=== PATIENT | male | born 1960 | race Caucasian/White ===

== ENCOUNTER 2018-12-15 06:08 | Day surgery (SDC) | payer MEDICARE, MEDICAID ==
[~2018-12-15] VITALS: Ht 170.2 cm; Wt 70.3 kg
[2018-12-15] VITALS (10 sets, daily range): BP systolic 98–114; BP diastolic 56–73
[2018-12-15] MEDS ORDERED: GENVOYA TABLET1 EACH PO (06:43)
--- NOTE | 2018-12-15 06:47 | Pre-Procedure Note/Attestation ---
Pre-Procedure Note/Attestation Complete Prior to Procedure Planned Procedure: not applicable Procedure Narrative: laparoscopic possible open ventral hernia repair with mesh Indications for Procedure Pre-Operative Diagnosis: incarcerated ventral hernia Attestation I attest that I discussed the nature of the procedure; its benefits; risks and complications; and alternatives (and the risks and benefits of such alternatives ), prior to the procedure, with the patient (or the patient's legal promotions representative). I attest that, if there was a reasonable possibility of needing a blood transfusion, the patient (or the patient's legal promotions representative) was given the [facility] standardized written summary, pursuant to the [place] Blood Safety Act ([place] Health and Safety Code # 1645, as amended). I attest that I re-evaluated the patient just prior to the surgery and that there has been no change in the patient's H&P, except as documented below: Kelby Rosenbaum Dec 15, 2018 06:47
[2018-12-15] MEDS ORDERED: fentaNYL 100 mcg/2 mL ONE (06:59)
[2018-12-15] MEDS ORDERED: Midazolam 2mg/2ml Inj ONE (06:59)
[2018-12-15] MEDS ORDERED: Rocuronium Bromide 50mg/5ml Inj IV ONE (07:09)
[2018-12-15] MEDS ORDERED: Succinylcholine 20mg/ml 10ml vial ONE (07:09)
[2018-12-15 07:23] LABS: ANION GAP 4 mmol/L (5-15); BLOOD UREA NITROGEN 18 mg/dL (7-18); CALCIUM 8.4 MG/DL (8.5-10.1); CARBON DIOXIDE 30 MMOL/L (21-32); CHLORIDE 105 MMOL/L (98-107); CREATININE 1.4 MG/DL (0.55-1.30); POTASSIUM 3.8 MMOL/L (3.5-5.1); SODIUM 139 MMOL/L (136-145)
[2018-12-15 07:26] LABS: BASOPHILS % (AUTO) 0.8 % (0.0-2.0); HEMATOCRIT 47.1 % (42.0-52.0); HEMOGLOBIN 16.6 G/DL (14.2-18.0); LYMPHOCYTES % (AUTO) 36.8 % (20.0-45.0); MEAN CORPUSCULAR VOLUME 100 FL (80-99); MONOCYTES % (AUTO) 17.1 % (1.0-10.0); NEUTROPHILS % (AUTO) 44.4 % (45.0-75.0); PLATELET COUNT 325 K/UL (150-450); RED CELL DISTRIBUTION WIDTH 11.9 % (11.6-14.8)
[2018-12-15] MEDS ORDERED: Bacitracin 50000 Units Vial ONE (07:27)
[2018-12-15] MEDS ORDERED: NeoSporin Gu Irrig 1ml Amp IRRIG ONE (07:27)
[2018-12-15] MEDS ORDERED: Bupivacaine w/Epi 0.5% 30ml Vial INJ ONE (07:27)
[2018-12-15] MEDS ORDERED: Morphine Sulfate 10mg/ml Inj ONE (08:16)
[2018-12-15] MEDS ORDERED: Ketorolac 30mg Inj ONE (08:17)
[2018-12-15] MEDS ORDERED: Sodium Chloride 10ml vial INJ ONE (08:17)
[2018-12-15] MEDS ORDERED: Glycopyrrolate 0.2mg/ml 1ml Vial ONE (08:19)
[2018-12-15] MEDS ORDERED: LR 1000ml 1,000 ML IVLG SCH (08:31)
--- NOTE | 2018-12-15 08:31 | Anethesia Preoperative Eval ---
Anesthesia Pre-op PMH/ROS General Date of Evaluation: Dec 15, 2018 Time of Evaluation: 07:10 Anesthesiologist: Bryce ASA Score: ASA 2 Mallampati Score Class I : Soft palate, uvula, fauces, pillars visible Class II: Soft palate, uvula, fauces visible Class III: Soft palate, base of uvula visible Class IV: Only hard plate visible Mallampati Classification: Class II Surgeon: Aman Diagnosis: Ventral hernia Surgical Procedure: Laparoscopic ventral hernia repair Anesthesia History: none Family History: no anesthesia problems Allergies: Coded Allergies: AMOXICILLIN (Verified Allergy, Unknown, 12/15/18) SULFAMETHOXAZOLE (Verified Allergy, Unknown, 12/15/18) TRIMETHOPRIM (Verified Allergy, Unknown, 12/15/18) Medications: see eMAR Patient NPO?: Yes Past Medical History Cardiovascular: Denies: HTN, CAD, NE, valve dz, arrhythmia, other Pulmonary: Denies: asthma, COPD, ADRIANA, other Gastrointestinal/Genitourinary: Reports: GERD - mild; Denies: CRI, ESRD, other Neurologic/Psychiatric: Reports: depression/anxiety; Denies: dementia, CVA, TIA, other Endocrine: Denies: DM, hypothyroidism, steroids, other HEENT: Denies: cataract (L), cataract (R), glaucoma, VENETIE (L), VENETIE (R), other Hematology/Immune: Reports: other - 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 Exam Physician Exam Last Vital Signs Date Time Temp Pulse Resp B/P (MAP) Pulse Ox O2 Delivery O2 Flow Rate FiO2 12/15/18 06:53 Room Air 12/15/18 06:31 97.8 63 18 110/73 96 Constitutional: NAD Neurologic: CN 2-12 intact Cardiovascular: RRR, no M/R/G Respiratory: CTA Gastrointestinal: S/NT/ND Airway Exam Mallampati Score: Class II MO: full Neck: flexible ROM: full Teeth: intact Dentures: no upper, no lower Anesthesia Pre-op A/P Labs Hematology Test 12/15/18 07:00 White Blood Count 10.0 K/UL (4.8-10.8) Red Blood Count 4.70 M/UL (4.70-6.10) Hemoglobin 16.6 G/DL (14.2-18.0) Hematocrit 47.1 % (42.0-52.0) Mean Corpuscular Volume 100 FL (80-99) H Mean Corpuscular Hemoglobin 35.3 PG (27.0-31.0) H Mean Corpuscular Hemoglobin Concent 35.2 G/DL (32.0-36.0) Red Cell Distribution Width 11.9 % (11.6-14.8) Platelet Count 325 K/UL (150-450) Mean Platelet Volume 5.1 FL (6.5-10.1) L Neutrophils (%) (Auto) 44.4 % (45.0-75.0) L Lymphocytes (%) (Auto) 36.8 % (20.0-45.0) Monocytes (%) (Auto) 17.1 % (1.0-10.0) H Eosinophils (%) (Auto) 1.0 % (0.0-3.0) Basophils (%) (Auto) 0.8 % (0.0-2.0) Coagulation Test 12/15/18 07:00 Prothrombin Time 11.1 SEC (9.30-11.50) Prothromb Time International Ratio 1.0 (0.9-1.1) Activated Partial Thromboplast Time 30 SEC (23-33) Chemistry Test 12/15/18 07:00 Sodium Level 139 MMOL/L (136-145) Potassium Level 3.8 MMOL/L (3.5-5.1) Chloride Level 105 MMOL/L (98-107) Carbon Dioxide Level 30 MMOL/L (21-32) Anion Gap 4 mmol/L (5-15) L Blood Urea Nitrogen 18 mg/dL (7-18) Creatinine 1.4 MG/DL (0.55-1.30) H Estimat Glomerular Filtration Rate 52.4 mL/min (>60) Glucose Level 92 MG/DL (74-106) Calcium Level 8.4 MG/DL (8.5-10.1) L Studies Pre-op Studies: EKG - NSR Risk Assessment & Plan Assessment: ASA 2 Plan: GA with ETT Status Change Before Surgery: No Pre-Antibiotics Drug: Ancef 2gr Given Within 1 Hr of Incision: Yes Time Given: 08:12 Stevie Wu MD Dec 15, 2018 08:31
[2018-12-15] MEDS ORDERED: DiphenhydrAMINE 50mg/ml Inj IVP PRN (08:45)
[2018-12-15] MEDS ORDERED: Meperidine 50mg/ml Inj(FOR RIGORS ONLY) IV PRN (08:45)
--- NOTE | 2018-12-15 09:19 | Brief Operative Note ---
Immediate Post Operative Note Operative Note Pre-op Diagnosis: incarcerated ventral hernia Procedure: 1. laparoscopic lysis of adhesions 2. open incarcerated ventral hernia repair 3. implantation of mesh Post-op Diagnosis: 1. abdominal wall adhesions 2. ventral incarcerated hernia Surgeon: Ilsa Anesthesiologist: Bryce Anesthesia: general, local Specimen: yes Complications: none Condition: stable Fluids: see records Estimated Blood Loss: minimal Drains: none Implant(s) used?: Yes Kelby Rosenbaum Dec 15, 2018 09:19
--- NOTE | 2018-12-15 09:24 | Immediate Post-Op Evaluation ---
Immediate Post-Op Evalulation Immediate Post-Op Evalulation Procedure: Laparoscopic ventral hernia repair Date of Evaluation: Dec 15, 2018 Time of Evaluation: 09:23 IV Fluids: 1000 Blood Products: none Estimated Blood Loss: min Urinary Output: none Blood Pressure Systolic: 109 Blood Pressure Diastolic: 71 Pulse Rate: 72 Respiratory Rate: 20 O2 Sat by Pulse Oximetry: 99 Temperature (Fahrenheit): 97.8 Pain Score (1-10): 1 Nausea: No Vomiting: No Complications none Patient Status: reacts, patent, extubated, none Hydration Status: adequate Stevie Wu MD Dec 15, 2018 09:24
--- NOTE | 2018-12-15 10:29 | 48 Hour Post Anesthesia Eval ---
Post Anesthesia Evaluation Procedure: Laparoscopic ventral hernia repair Date of Evaluation: Dec 15, 2018 Time of Evaluation: 10:28 Blood Pressure Systolic: 124 0: 76 Pulse Rate: 68 Respiratory Rate: 20 Temperature (Fahrenheit): 97.6 O2 Sat by Pulse Oximetry: 98 Airway: patent Nausea: No Vomiting: No Pain Intensity: 1 Hydration Status: adequate Cardiopulmonary Status: stable Mental Status/LOC: patient returned to baseline Follow-up Care/Observations: n/a Post-Anesthesia Complications: none Follow-up care needed: ready to discharge Stevie Wu MD Dec 15, 2018 10:29
--- NOTE | 2018-12-15 15:45 | Operative Note - Dictated ---
DATE OF OPERATION: 12/15/2018 PREOPERATIVE DIAGNOSIS: Incarcerated ventral hernia. POSTOPERATIVE DIAGNOSES: 1. Intra-abdominal abdominal wall adhesions. 2. Incarcerated ventral hernia. OPERATION PERFORMED: 1. Laparoscopic lysis of adhesions. 2. Open repair of incarcerated ventral hernia. 3. Implantation of mesh. ATTENDING SURGEON: Kelby Rosenbaum M.D. BAG REPAIRER: None. ANESTHESIOLOGIST: Stevie Wu M.D. ANESTHESIA: General LOSS CONTROL ENGINEER plus local. ESTIMATED BLOOD LOSS: Minimal. IV FLUIDS: Please see anesthesia records. COMPLICATIONS: None. DRAINS: None. COUNTS: Sponge and needle count correct x2. WOUND CLASSIFICATION: Class 1. SPECIMENS: Hernia and sac contents sent to pathology for review. IMPLANTS: Bard Ventralex hernia patch, self-expanding, polypropylene, and PTFE patch with strap and SorbaFlex Memory Technology for soft tissue reconstruction, small table mountain with strap 4.3 cm diameter, lot number [id number], reference [id number], expiration 07/19/2019. INDICATIONS FOR PROCEDURE: This 58-year-old male presented to his primary care physician for evaluation of an abnormal abdominal mass with discomfort. The patient was identified to have an incarcerated ventral hernia and was referred to myself for evaluation, was seen in the office, and identified to have a likely fat containing ventral hernia in the right epigastric subxiphoid region. Hernia could not be reduced and was easily palpable. Surgery was indicated and recommended. Risks, benefits, and alternatives were discussed with the patient in detail including the implantation of mesh. The patient expressed understanding and consented to surgery. We discussed laparoscopic versus open surgery. Given the patient's prior surgeries, a laparoscope was inserted and intra-abdominal area evaluated and potential for laparoscopic versus open repair with implantation of mesh. The patient was scheduled for 12/15/2018. Preoperative workup and medical clearance was obtained from patient's primary care physician. OPERATIVE NOTE: The patient was taken to the operating room and placed on the operating table in supine position. Bilateral arms tucked. All bony prominences well padded. SCDs were placed. Preoperative time-out was taken identifying the patient, procedure, operative staff, and surgical staff. General anesthesia induced and the patient was intubated. The abdomen was clipped, prepped, draped in standard surgical fashion. Local anesthetic was infiltrated in the skin incisions and port sites throughout the procedure. An infraumbilical incision was made using a fresh #11 scalpel and carried down to the fascia, which was elevated and incised. A small fascial incision was made and a 5 mm laparoscopic trocar was inserted without complication. The abdomen was insufflated to 12 to 15 mmHg. Laparoscope was inserted. The abdomen was inspected. No injury from initial trocar placement identified. In inspecting the abdomen, there were no abnormalities in the pubis or right or left lower quadrant. In the right upper quadrant, liver was otherwise healthy. In the subxiphoid right epigastric region, there was an incarcerated ventral hernia at the most distal falciform ligament/round ligament. This was a incarcerated hernia, which was easily identifiable laparoscopically. The hernia sac and contents were mainly within the round ligament and could be identified extruding laterally as well. 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 Given the location and the proximity to the small bowel, this was concerning for potential bowel obstruction in the future. Given these findings, decision was made to proceed with an open repair of the ventral hernia after reduction of the incarcerated contents with laparoscopic lysis of adhesions at the same time. Local anesthetic was infiltrated over the apex of the incarcerated hernia. A skin incision made using a fresh #15 scalpel and the hernia sac was identified. The hernia sac was circumferentially dissected out through the fascia, which was identified to be a defect approximately 1 cm. The fascial defect was slightly incised to allow for the contents to be mobilized. Once this was done, it was identified that it was directly containing and adherent to the distal aspect of the round ligament. Once circumferentially dissected out, it was ligated with a #0 silk tie and divided. Following this, the hernia sac and contents were sent to pathology for review. Following this, abdomen was evaluated and identified that the round ligament/ligamentum teres hepatis was now in its proper positioning at the division of the liver segments and the remainder of the true falciform was intact. Once this was completed, the fascial edges were freshened and a 12 mm Ammy trocar was inserted through the defect and laparoscopic scissors were used to perform an intra-abdominal laparoscopic lysis of adhesions of these left upper quadrant omental adhesions noted at the anterior abdominal wall, which were concerning for potential bowel obstruction in the future. Once all adhesions were taken down, the abdomen was inspected and otherwise satisfactory without any complications or abnormalities. The Ammy trocar was removed and the abdomen was desufflated. Open ventral hernia repair was performed of the remaining defect utilizing a Bard Ventralex hernia patch small circular mesh with strap and [employer]. This was fashioned in place with reapproximation of the fascial edges using multiple interrupted 2-0 Prolene sutures. Satisfactory hernia repair was identified laparoscopically and open at the end of the procedure with mesh in appropriate positioning and good tension-free closure. The wound was irrigated and suctioned. Hemostasis was obtained with electrocautery. The wound was then closed in two-layer fashion beginning with 3-0 Vicryl subcutaneous tissue interrupted sutures followed by 4-0 Monocryl subcuticular interrupted sutures. The 5 mm port was removed and the wound was irrigated. Hemostasis noted and skin incision reapproximated using 4-0 Monocryl subcuticular interrupted sutures. Wounds were cleansed. Skin glue and Steri-Strips were applied. The patient tolerated the procedure well, was extubated, and taken to postanesthetic care unit in stable condition. Kelby Rosenbaum M.D. DR: JENELLE JOB#: [id number] CC: RICHARDSON
[2018-12-15] MEDS ORDERED: D5 1/2NS 1,000 ML IV SCH (17:00)
[2018-12-15] MEDS ORDERED: HYDROcodone/Acetamin 5/325 tab ORAL PRN (17:00)
[2018-12-15] MEDS ORDERED: HYDROmorphone 1mg/ml Carpuject SUBQ PRN (17:00)
[2018-12-15] MEDS ORDERED: Tylenol #3 tab (300mg/30mg) ORAL PRN (17:00)
== END 2018-12-15 12:50 | disposition home or self-care (01) ==
LOC: SUR 06:08
DX: K43.0 Incisional hernia with obstruction, without gangrene (principal); Z88.0 Allergy status to penicillin; Z90.81 Acquired absence of spleen; Z79.899 Other long term (current) drug therapy; B18.1 Chronic viral hepatitis B without delta-agent; B20 Human immunodeficiency virus [HIV] disease; M81.0 Age-related osteoporosis without current pathological fracture; K21.9 Gastro-esophageal reflux disease without esophagitis; F32.9 Major depressive disorder, single episode, unspecified; F41.9 Anxiety disorder, unspecified; Z90.89 Acquired absence of other organs
CPT/HCPCS: 36415; 49655; 80048; 85025; 85610; 85730; C1781; J0330; J1885; J2250; J2270; J3010; 94003; 94150

== ENCOUNTER → 2019-06-06 | Outpatient (CLI) | payer MEDICARE, MEDICAID ==
[~2019-06-06] VITALS: Ht 30.5 cm; Wt 0.5 kg
[~2019-06-06] MED LIST: GENVOYA TABLET1 EACH PO; Lidocaine 2% MPF 5ml Vial INJ SCH
[2019-06-06 09:46] LABS: HEMATOCRIT 49.1 % (42.0-52.0); MEAN CORPUSCULAR VOLUME 95 FL (80-99); PLATELET COUNT 418 K/UL (150-450); RED BLOOD COUNT 5.19 M/UL (4.70-6.10); RED CELL DISTRIBUTION WIDTH 12.8 % (11.6-14.8); WHITE BLOOD COUNT 20.4 K/UL (4.8-10.8)
--- NOTE | 2019-06-06 11:17 | PATHOLOGY BONE BARROW ---
Bone Marrow Aspirate & Biopsy . PROCEDURE: Bone Marrow Aspirate and Biopsy INDICATION:Unexplained leucocytosis PROCEDURE EMAIL MARKETING EXECUTIVE: Verena Coon M.D. CONSENT: Consent was previously obtained from the patient. The risks and benefits were re-explained. The patient agreed to undergo the procedure. A TIMEOUT WAS EXECUTED: Yes PROCEDURE SUMMARY: The patient was laid in the side position. The left posterior iliac crest was prepped and draped in a sterile fashion. The crest of the posterior iliac was located, and the skin as well as surface of the bone was anesthetized with 2 % lidocaine. An aspirating needle was introduced, the bone marrow aspirate was obtained without any difficulty. This was withdrawn the coring needle was advanced into the bone cavity. A bone marrow biopsy was obtained without any complications. ESTIMATED BLOOD LOSS: Negligible REPORTS TO FOLLOW VERENA COON Jun 06, 2019 11:17
== END | disposition home or self-care (01) ==
LOC: EDSTATUS 06-03 09:00 → CAT 10:01
DX: D72.829 Elevated white blood cell count, unspecified (principal)
CPT/HCPCS: 36415; 38222; 85007; 85025